=== PATIENT | male | born 1980 | race Caucasian/White ===

== ENCOUNTER 2020-10-22 05:56 | Outpatient (REF) | payer OTHER, SELFPAY ==
[2020-10-22 06:30] LABS: MANUAL DIFF FLAG NO
[2020-10-22 06:49] LABS: Basophils Absolute Auto 0.1 X10*3/uL (0.0-0.2); Basophils Percent Auto 0.7 % (0-2); Eosinophils Absolute Auto 0.2 X10*3/uL (0.0-0.4); Eosinophils Percent Auto 3.2 % (0-4); Hematocrit 44.1 % (42-52); Hemoglobin 14.8 g/dl (14.0-18.0); Imm Gran Abs Auto 0.03 X10*3/uL (0.00-0.03); Imm Gran Pct Auto 0.4 % (0.0-0.4); Lymphocytes Absolute Auto 2.5 X10*3/uL (1.2-4.9); Lymphocytes Percent Auto 34.2 % (20-40); Mean Corpuscular HGB Conc 33.6 g/dl (31.0-36.0); Mean Corpuscular Hemoglobin 30.4 pg (27.0-33.0); Mean Corpuscular Volume 90.6 fL (80-98); Mean Platelet Volume 9.9 fL (9.4-12.4); Monocytes Absolute Auto 0.8 X10*3/uL (0.1-1.2); Monocytes Percent Auto 11.5 % (2-11); Neutrophils Absolute Auto 3.7 X10*3/uL (2.0-8.3); Platelet Count 292 X10*3/uL (160-400); Red Blood Count 4.87 X10*6/uL (4.60-5.80); Red Cell Distribution Width 12.8 % (11.0-16.0); White Blood Count 7.3 X10*3/uL (4.8-10.8)
[2020-10-22 09:18] LABS: Alanine Aminotransferase 19 U/L (0-40); Albumin Level 4.2 g/dL (3.5-5.0); Alkaline Phosphatase 37 U/L (39-117); Anion Gap 15 (12-20); Aspartate Amino Transferase 22 U/L (5-37); Bilirubin Total 0.5 mg/dL (0.0-1.0); Blood Urea Nitrogen 16 mg/dL (9-16); Calcium 8.7 mg/dL (8.4-10.2); Carbon Dioxide 24 mmol/L (22-29); Chloride 104 mmol/L (96-108); Cholesterol 246 mg/dL; Estimated Glomerular Filt Rate > 60; Gamma Glutamyl Transpeptidase 31 U/L (11-51); Glucose Random 97 mg/dL (60-115); HDL Cholesterol 38 mg/dL; LDL Cholesterol Calculated 180 mg/dl; Potassium 4.4 mmol/l (3.3-5.1); Sodium 139 mmol/L (135-145); Total Protein 7.1 g/dL (6.5-8.0); Triglycerides 144 mg/dL
[2020-10-22 09:37] LABS: Free T4 (Free Thyroxine) 0.94 ng/dL (0.71-1.85); Prostate Specific Antigen Scr 0.72 ng/mL (<0.05-4.0); Thyroid Stimulating Hormone 2.45 uIU/mL (0.32-4.0)
[2020-10-23 09:17] LABS: Follicle Stimulating Hormone 9.6 mIU/mL (1.6-8.0); Triiodothyronine T3 Free 3.6 pg/mL (2.3-4.2)
[2020-10-23 12:26] LABS: DHEA Sulfate 308 mcg/dL (70-495); Insulin Level Total 11.9 uIU/mL
[2020-10-23 16:27] LABS: CRP High Sensitivity 1.5 mg/L
[2020-10-23 18:47] LABS: Calcium (PTHI) 9.1 mg/dL (8.6-10.3); PTHI 26 pg/mL (14-64)
[2020-10-26 18:27] LABS: Homocysteine 9.3 umol/L (<11.4)
[2020-10-26 21:02] LABS: Estradiol Ultra Sensitive 53 pg/mL (< OR = 29)
[2020-10-27 17:27] LABS: Testosterone, Free 115.9 pg/mL (35.0-155.0); Testosterone, Total 670 ng/dL (250-1100)
[2020-10-29 00:03] LABS: Dihydrotestosterone 32 ng/dL (12-65)
== END 2020-10-22 05:57 | disposition home or self-care (01) ==
LOC: HO.LAB 05:56
PROVIDERS: PCP Internal Medicine; Visit Provider Internal Medicine
DX: Z00.00 Encounter for general adult medical examination without abnormal findings (principal); E29.1 Testicular hypofunction; E78.5 Hyperlipidemia, unspecified; K76.0 Fatty (change of) liver, not elsewhere classified; R53.83 Other fatigue; E78.00 Pure hypercholesterolemia, unspecified; E66.01 Morbid (severe) obesity due to excess calories; Z12.5 Encounter for screening for malignant neoplasm of prostate; Z13.31 Encounter for screening for depression
CPT/HCPCS: 36415; 80053; 80061; 82306; 82627; 82642; 82670; 82977; 83001; 83002; 83090; 83525; 83970; 84146; 84153; 84402; 84403; 84439; 84443; 84481; 85025; 86141

== ENCOUNTER 2021-01-19 05:56 | Outpatient (REF) | payer OTHER, SELFPAY ==
[2021-01-19 07:19] LABS: Cholesterol 210 mg/dL; HDL Cholesterol 39 mg/dL; LDL Cholesterol Calculated 144 mg/dl; Triglycerides 139 mg/dL
[2021-01-19 07:38] LABS: Vitamin D 25-OH Total 34.4 ng/mL (>30)
[2021-01-20 07:46] LABS: Follicle Stimulating Hormone 11.5 mIU/mL (1.6-8.0); Lutenizing Hormone 10.9 mIU/mL (1.5-9.3); Triiodothyronine T3 Free 3.8 pg/mL (2.3-4.2)
[2021-01-20 08:57] LABS: Thyroglobulin Antibodies <1 IU/mL (< or = 1); Thyroid Peroxidase Antibodies <1 IU/mL (<9)
[2021-01-20 18:12] LABS: Insulin Level Total 10.4 uIU/mL
[2021-01-24 02:07] LABS: Dihydrotestosterone 38 ng/dL (12-65)
[2021-02-04 11:37] LABS: Triiodothyronine T3 Reverse 15
[2021-02-04 11:41] LABS: Estradiol, Ultrasensitive 19
== END 2021-01-19 05:57 | disposition home or self-care (01) ==
LOC: HO.LAB 05:56
PROVIDERS: PCP Internal Medicine; Visit Provider Internal Medicine
DX: E03.9 Hypothyroidism, unspecified (principal); E78.5 Hyperlipidemia, unspecified
CPT/HCPCS: 36415; 80061; 82172; 82306; 82642; 82670; 82681; 83001; 83002; 83525; 83695; 84481; 84482; 86376; 86800

== ENCOUNTER 2021-04-30 06:09 | Outpatient (REF) | payer OTHER, SELFPAY ==
[2021-04-30 07:29] LABS: Alanine Aminotransferase 39 U/L (0-40); Albumin Level 4.2 g/dL (3.5-5.0); Alkaline Phosphatase 38 U/L (39-117); Anion Gap 11 (12-20); Aspartate Amino Transferase 29 U/L (5-37); Bilirubin Total 0.5 mg/dL (0.0-1.0); Blood Urea Nitrogen 10 mg/dL (9-16); Calcium 9.3 mg/dL (8.4-10.2); Carbon Dioxide 28 mmol/L (22-29); Chloride 106 mmol/L (96-108); Estimated Glomerular Filt Rate > 60; Glucose Random 99 mg/dL (60-115); Potassium 5.2 mmol/L (3.3-5.1); Sodium 140 mmol/L (135-145); Total Protein 6.9 g/dL (6.5-8.0)
[2021-05-02 03:51] LABS: Follicle Stimulating Hormone <0.7 mIU/mL (1.6-8.0); Lutenizing Hormone <0.2 mIU/mL (1.5-9.3)
[2021-05-05 17:12] LABS: Progesterone <0.1 ng/mL (< OR = 0.2)
[2021-05-05 22:01] LABS: Apolipoprotein B 131 mg/dL (<90); Lipoprotein A 12 nmol/L (<75)
[2021-05-06 16:01] LABS: Testosterone, Free 333.1 pg/mL (35.0-155.0); Testosterone, Total 1257 ng/dL (250-1100)
[2021-05-07 19:16] LABS: Estradiol Free 0.95 pg/mL; Estradiol, Ultrasensitive 33 pg/mL
[2021-05-08 00:21] LABS: Dihydrotestosterone 47 ng/dL (12-65)
== END 2021-04-30 06:10 | disposition home or self-care (01) ==
LOC: HO.LAB 06:09
PROVIDERS: PCP Internal Medicine; Visit Provider Internal Medicine
DX: E29.1 Testicular hypofunction (principal); E55.9 Vitamin D deficiency, unspecified
CPT/HCPCS: 36415; 80053; 82172; 82306; 82642; 82670; 82681; 83001; 83002; 83695; 84144; 84402; 84403

== ENCOUNTER 2022-07-16 07:26 | Outpatient (REF) | payer OTHER, SELFPAY ==
[2022-07-16 07:54] LABS: Hemoglobin 16.9 g/dl (14.0-18.0); Mean Corpuscular HGB Conc 34.5 g/dl (31.0-36.0); Mean Corpuscular Hemoglobin 29.9 pg (27.0-33.0); Mean Corpuscular Volume 86.6 fL (80.0-98.0); Mean Platelet Volume 9.7 fL (9.4-12.4); Platelet Count 281 X10*3/uL (160-400); Red Blood Count 5.66 X10*6/uL (4.60-5.80); White Blood Count 7.7 X10*3/uL (4.8-10.8)
[2022-07-16 08:48] LABS: Prostate Specific Antigen Scr 0.43 ng/mL (<0.05-4.0)
[2022-07-21 22:16] LABS: Estradiol Ultra Sensitive 12 pg/mL (< OR = 29)
[2022-07-22 03:12] LABS: Dihydrotestosterone 74 ng/dL (12-65)
[2022-07-22 20:41] LABS: Testosterone, Total 1292 ng/dL (250-1100)
== END 2022-07-16 07:27 | disposition home or self-care (01) ==
LOC: HO.LAB 07:26
PROVIDERS: PCP Internal Medicine; Visit Provider Physician Assistant
DX: E11.9 Type 2 diabetes mellitus without complications (principal); E29.1 Testicular hypofunction; D64.9 Anemia, unspecified; R53.83 Other fatigue; Z12.5 Encounter for screening for malignant neoplasm of prostate
CPT/HCPCS: 36415; 82642; 82670; 84153; 84402; 84403; 85027